=== PATIENT | male | born 2000 | race Caucasian/White ===

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

== ENCOUNTER → 2021-03-26 | Emergency (ER) | payer MEDICAID, OTHER ==
[~2021-03-26] VITALS: Ht 185.4 cm; Wt 103.6 kg
[2021-03-26 13:31] VITALS: BP 112/58
== END | disposition home or self-care (01) ==
LOC: ER 13:04
DX: S61.211A Laceration without foreign body of left index finger without damage to nail, initial encounter (principal); W23.1XXA Caught, crushed, jammed, or pinched between stationary objects, initial encounter; Y93.89 Activity, other specified; Y92.89 Other specified places as the place of occurrence of the external cause; Y99.8 Other external cause status
CPT/HCPCS: 12001; 99282

== ENCOUNTER 2021-04-07 10:39 | Emergency (ER) | payer OTHER ==
[~2021-04-07] VITALS: Ht 185.4 cm; Wt 100.6 kg
[2021-04-07 11:15] VITALS: BP 113/79
== END 2021-04-07 12:06 | disposition home or self-care (01) ==
LOC: ER 10:40
DX: S61.211D Laceration without foreign body of left index finger without damage to nail, subsequent encounter (principal); Z48.02 Encounter for removal of sutures; X58.XXXD Exposure to other specified factors, subsequent encounter
CPT/HCPCS: 99281

== ENCOUNTER 2022-02-12 07:08 | Emergency (ER) | payer MEDICAID, OTHER ==
[~2022-02-12] VITALS: Ht 182.9 cm; Wt 106.8 kg
[2022-02-12 07:36] VITALS: BP 130/89
[2022-02-12] MEDS ORDERED: TRIA15CR61 TOP (09:53)
[2022-02-12] MEDS ORDERED: MUPI22OI30 TOP (09:53)
[2022-02-12] MEDS ORDERED: SULF1TAB49 PO (09:53)
== END 2022-02-12 10:31 | disposition home or self-care (01) ==
LOC: ER 07:09
DX: L03.031 Cellulitis of right toe (principal); L60.0 Ingrowing nail; Z79.2 Long term (current) use of antibiotics; Z79.899 Other long term (current) drug therapy
CPT/HCPCS: 99283

== ENCOUNTER 2022-10-28 13:39 | Emergency (ER) | payer MEDICAID ==
[~2022-10-28] VITALS: Ht 182.9 cm; Wt 114.0 kg
[2022-10-28 16:24] VITALS: BP 134/90
[2022-10-28] MEDS ORDERED: famotidine 20mg tablet PO ONE (16:55)
[2022-10-28] MEDS ORDERED: diphenhydrAMINE 25mg capsule PO ONE (16:55)
[2022-10-28] MEDS ORDERED: EPIN0.3P3 IM (16:59)
== END 2022-10-28 17:57 | disposition home or self-care (01) ==
LOC: ER 13:39
DX: T78.2XXA Anaphylactic shock, unspecified, initial encounter (principal); F32.A Depression, unspecified
CPT/HCPCS: 93005; 99283; Q0163